=== PATIENT | male | born 1995 | race Caucasian/White ===

== ENCOUNTER 2017-02-17 13:51 | Emergency (ER) | payer SELFPAY ==
[~2017-02-17] VITALS: Ht 170.2 cm; Wt 86.5 kg
[~2017-02-17 13:51] MED LIST: AMOX500T PO; LORTS PO; Z.0.NO CURRENT MEDS; ZITH250T PO
[2017-02-17 14:00] VITALS: BP 116/75; PULSE 87; RESP 16; TEMP 98.7; O2SAT 98
[2017-02-17 14:18] LABS: BLOOD, URINE NEG (NEG); GLUCOSE,URINE NEG (NEG); KETONE, URINE NEG (NEG); NITRITE,URINE NEG (NEG); PH, URINE 6.5 (5.0-8.5)
--- NOTE | 2017-02-17 14:18 | PD ---
HPI Chief Complaint: Back/ Neck Pain or Injury Time Seen by Provider: 14:18 Travel History International Travel<30 days: No Contact w/Intl Traveler<30days: No Traveled to known affect area: No History of Present Illness HPI 21-year-old male with PMH of childhood asthma presents to the ED for evaluation of episode of palpitations, SOB, N/V that woke him from sleep ~3am today. Patient states that the palpitations lasted approximately 2 hours before gradually resolving spontaneously. He states that he treated the palpitations by smoking marijuana which did not improve his symptoms. He states that shortly after this he began to have pain in his low back. States that he feels as if he cannot get comfortable. He endorses numbness and tingling along the lateral aspect of the left leg that radiates into the foot. Denies saddle anesthesia, incontinence, limitations to ROM or loss of strength. He states that he had increased urinary frequency over night without dysuria. He also endorses mild headache without dizziness or vision changes. States that he has been otherwise well. Denies history of anxiety or heart problems. Has not seen a doctor since age 17. PFSH Past Medical History Medical History: Denies Significant Hx Diminished Hearing: No Immunizations Current: Yes Influenza Vaccination: No ?: Not Past Surgical History Surgical History: No Previous Surgery Social History Alcohol Use: No Tobacco Use: No Substance Use: Yes (marijuana) Allergies-Medications (Allergen,Severity, Reaction): Coded Allergies: No Known Allergies (Verified , 02/17/17) Reported Meds & Prescriptions Reported Meds & Active Scripts Active No Active Prescriptions or Reported Medications Review of Systems Except as stated in HPI: all other systems reviewed are Neg Physical Exam Narrative GENERAL: Well-nourished, well-developed anxious white male in no acute distress. SKIN: Warm and dry. HEAD: Normocephalic. Atraumatic. EYES: No scleral icterus. No injection or drainage. PERRLA. EOMI. ENT: Pearly briceno tympanic membranes bilaterally. Nasal mucosa is moist. Oropharynx without erythema, edema or exudate. NECK: Supple, trachea midline. No JVD or lymphadenopathy. CARDIOVASCULAR: Regular rate and rhythm without murmurs, gallops, or rubs. 2+ DP and radial pulses bilaterally. RESPIRATORY: Breath sounds equal bilaterally. Mild wheezing in bilateral lung montero. No accessory muscle use. GASTROINTESTINAL: Abdomen soft, non-tender, nondistended. + Bowel sounds MUSCULOSKELETAL: No cyanosis, or edema. Full, active range of motion. Strength 5/5. Neurovascularly intact. NEUROLOGICAL: Awake and alert. Cranial nerves II through XII intact. Motor and sensory grossly within normal limits. Normal speech. BACK: Nontender without obvious deformity. No CVA tenderness. Straight leg raise negative bilaterally. Data Data Last Documented VS Vital Signs Date Time Temp Pulse Resp B/P Pulse Ox O2 Delivery O2 Flow Rate FiO2 02/17/17 14:00 98.7 87 16 116/75 98 Orders Urinalysis - C+S If Indicated (02/17/17 14:09) Chest, Single Ap (02/17/17 ) Electrocardiogram (02/17/17 14:34) Ketorolac Inj (Toradol Inj) (02/17/17 15:15) Labs Laboratory Tests Test 02/17/17 14:10 Urine Collection Type CLEAN CATCH Urine Color YELLOW Urine Turbidity CLEAR Urine pH 6.5 Urine Specific [place] 1.016 Urine Protein NEG mg/dL Urine Glucose (UA) NEG mg/dL Urine Ketones NEG mg/dL Urine Occult Blood NEG Urine Nitrite NEG Urine Bilirubin NEG Urine Leukocyte Esterase NEG Urine RBC 0-3 /hpf Urine Squamous Epithelial 0-5 /hpf Cells Microscopic Urinalysis Comment CULT NOT INDICATED Urine Collection Time 14:10 [facility] Medical Decision Making Medical Screen Exam Complete: Yes Emergency Medical Condition: Yes Differential Diagnosis anxiety versus UTI versus atypical chest pain versus Narrative Course 21-year-old male with PMH of childhood asthma presents to the ED for evaluation of episode of palpitations, SOB, N/V that woke him from sleep ~3am today. Patient states that the palpitations lasted approximately 2 hours before gradually resolving spontaneously. He states that he treated the palpitations by smoking marijuana which did not improve his symptoms. States that he stayed up on the Internet searching for a diagnosis all night. He states that he slept on the couch and is now experiencing low back pain radiating down the left leg. Denies saddle anesthesia, incontinence, limitations to ROM or loss of strength. He states that he had increased urinary frequency over night without dysuria. Denies history of anxiety or heart problems. Has not seen a doctor since age 17. On further questioning the patient endorses snoring as well as previous episodes of waking from sleep gasping feeling short of breath. I suspect that his symptoms are related to obstructive sleep apnea. Vitals reviewed. Physical exam reveals nontoxic-appearing white male in no acute distress. He does have very mild wheezing in bilateral lung montero. No abdominal tenderness. No CVA tenderness. No tenderness to palpation of midline in the back. Negative straight leg raise bilaterally. No focal neural deficits. Strength 5/5 in bilateral lower extremities. EKG rate 74, sinus rhythm. Normal first. Normal axis. No ischemic changes. Reviewed by Dr. Funk. Chest x-ray without evidence of cardiopulmonary disease per radiology read. No indication for culture of the UA. Patient was administered IM Toradol. He is instructed to return to normal, gentle activity as tolerated, follow-up with primary care provider for further evaluation. He was provided information on the patient assistance program. He indicated understanding of instructions and is amenable to plan of care. He is stable and discharged home. Diagnosis Primary Impression: Low back pain radiating down leg Additional Impression: Heart palpitations Referrals: Primary Care Physician Patient Instructions: Acute Low Back Pain (ED), General Instructions, Sleep Apnea (GEN) Additional Instructions: Rest, hydrate. A mixture of rest and activity as best for back pain Resume normal, gentle activities as tolerated. No strenuous physical activities for the next few days Take [id number] pain medications such as ibuprofen (up to 800 mg three times a day) as needed for continued pain. Applying ice or heat to areas with sore muscles may help to improve your pain. Do not apply ice/ heat for longer than 20 m/h. Ventolin inhaler when necessary for shortness of breath. Follow-up with your primary care provider as discussed. Return to the ED for any urgent or emergent medical condition. Scripts Albuterol 18 GM Inh (Ventolin Hfa 18 GM Inh)90 Mcg/Act Aer2 Puff INH Q6H PRN ( SHORTNESS OF BREATH) 30 Days Ref 0 Prov:Aydin Funk MD 02/17/17 Disposition: 01 DISCHARGE HOME Condition: Stable Karey Brice Feb 17, 2017 14:18
[2017-02-17 14:28] LABS: COMMENT (UR) CULT NOT INDICATED; CULTURE IF INDICATED CULT NOT INDICATED; METHOD OF COLLECTION CLEAN CATCH; RBC, URINE 0-3 /hpf (0-3); SQUAMOUS EPITHELIAL CELL URINE 0-5 /hpf (0-5); URINE COLOR YELLOW (YELLW/STRAW)
--- NOTE | 2017-02-17 15:00 | RADHPO ---
EXAM DATE/TIME: 02/17/2017 14:43 Caution: Report not yet finalized and possibly incomplete! [facility] COMPARISON: No previous studies available for comparison. INDICATIONS : Complains of chest and low back pain. MEDICAL HISTORY : None. SURGICAL HISTORY : None. ENCOUNTER: Initial ACUITY: 1 day PAIN SCORE: 4/10 LOCATION: Bilateral chest FINDINGS: A single view of the chest demonstrates the lungs to be symmetrically aerated without evidence of mas s, infiltrate or effusion. The cardiomediastinal contours are unremarkable. Osseous structures are intact. CONCLUSION: No acute disease. Abhilash Calloway MD FACR on February 17, 2017 at 14: 58 Board Certified Radiologist. This report was verified electronically.
[2017-02-17] MEDS ORDERED: VENTAER INH (15:12)
[2017-02-17] MEDS ORDERED: KETOROLAC TROMETHAMINE 60 MG/2 ML (IM) VIAL IM ONE (15:15)
--- NOTE | 2017-02-19 21:35 | EKG ---
Date Performed: 02/17/2017 Time Performed: 14:48:30 PTAGE: 21 years EKG: Sinus arrhythmia Normal ECG PREVIOUS TRACING : 11/26/2008 12.21 DOCTOR: Penelope Cano Interpretating Date/Time 02/19/2017 21:32:29
== END 2017-02-17 15:21 | disposition home or self-care (01) ==
LOC: PHEFT 13:51
DX: M54.5 Low back pain (principal); R00.2 Palpitations; F12.10 Cannabis abuse, uncomplicated
CPT/HCPCS: 71010; 81001; 93005; 96372; 99285; J1885